=== PATIENT | male | born 1945 | race Native Hawaiian/Other Pacific Islander ===

== ENCOUNTER → 2020-10-08 09:31 | Outpatient (CLI) | payer OTHER, SELFPAY ==
[2020-10-08 13:30] LABS: COVID19 -Nasal RAPID Negative (Negative)
== END ==
PROVIDERS: PCP Family Medicine; Visit Provider Physical Medicine & Rehabilitation
DX: Z20.822 Contact with and (suspected) exposure to COVID-19 (principal)
CPT/HCPCS: 87635; C9803

== ENCOUNTER 2020-10-10 14:23 | Outpatient (CLI) | payer OTHER, SELFPAY ==
[2020-10-10] VITALS (8 sets, daily range): BP systolic 113–152; BP diastolic 63–84; PULSE 75–80; RESP 15–20; TEMP 36.8; O2SAT 94–97
--- NOTE | 2020-10-10 14:25 | DI.RAD.S_ITS ---
PROCEDURE: PAIN L/S FACET INJ/BLK 1ST EVELYN COMPARISON: None. INDICATIONS: SPONDYLOSIS FINDINGS: Intraoperative fluoroscopic images of lower lumbar spine shows injection needle placement at bilateral facet joints of L3-4 and L4-5 levels. IMPRESSION: Fluoro guidance was provided intraoperatively for bilateral lower lumbar spine facet injection. Dictated by: Wilbert Andersen M.D. on 10/10/2020 at 15:55 Approved by: Wilbert Andersen M.D. on 10/10/2020 at 15:56
[2020-10-10] MEDS: fentaNYL 100 MCG/2 ML INJ 50 MCG IV (15:10)
[2020-10-10] MEDS: MIDAZOLAM 5 MG/5 ML VIAL IV (15:10)
[2020-10-10] MEDS: BETAMETHASONE 30 MG/5 ML MDV 12 MG INJ (15:14)
[2020-10-10] MEDS: IOPAMIDOL 15 ML VIAL 3 ML INJ (15:14)
[2020-10-10] MEDS: LIDOCAINE 1% 20 ML 10 ML INJ (15:15)
[2020-10-10] MEDS: BUPIVACAINE 0.5% (PF) VIAL 2 ML INJ (15:15)
--- NOTE | 2020-10-10 15:23 | P.PCN_ITS ---
Date/Time/Diagnoses Date of procedure: 10/10/20 Time of procedure: 15:23 Pre-procedure diagnosis: 1. FACET ARTHROPATHY 2. AXIAL LBP 3. MULTILEVEL DDD Post-procedure diagnosis: same Procedure Notes Procedure: 1. FLUOROSCOPICALLY GUIDED CONTRAST CONTROLLED FACET JOINT INJECTIONS BILATERAL L4/5, L5/S1 Indications: Taye is referred by Dr. La for treatment of Axial LBP Physician: Jose Cummins Total Fluoroscopy time (seconds): 8 Total sedation minutes: 10 Complications: none Procedure in detail & Post-procedure care: FINDINGS Multilevel Facet Arthropathy with Clinically significant axial LBP DESCRIPTION OF PROCEDURE Fluoroscopically guided, contrast-controlled bilateral L4/5, L5/S1 facet joint injections. Following review of allergy and review of potential side effects and complications, including, but not necessarily limited to, infection, allergic reaction, local tissue breakdown, stroke, temporary or permanent nerve injury, paralysis, and possible , the patient indicated that the patient understood and agreed to proceed. An informed consent document was signed by the patient, witnessed by a nurse, and placed in the patient's chart. Additionally, other treatment options including medications, modalities, and physical therapy were reviewed with the patient. After review of previous anaesthesic history and IV conscious sedation the patient was deemed safe to proceed with today?s procedure with IV conscious sedation as ASA class II designation. Safety time-out was performed to confirm patient ID, procedure to be performed and site of procedure. IV sedation was accomplished with a combination of 2mg of Versed and 50mcg of Fentanyl was administered by the RN after DO order, titrated to patient comfort during the course of the procedure while the patient remained responsive to all verbal commands In the prone position, following sterile prep and drape of the lumbar region, the posterior aspect of the L4/5, L5/S1 facet joints were identified fluoroscopically. The skin was anesthetized via a 25-gauge 1.5inch needle with 1% lidocaine solution into the corresponding facet joints. At this point, a 22- gauge 3.5-inch spinal needle was atraumatically introduced and advanced under fluoroscopic guidance into the corresponding facet joints. Following negative aspiration, injections of approximately 0.2cc of Isovue 200 confirmed interar ticular placement without vascular uptake. The identical procedure was then performed at the L4/5, L5/S1 facet joints on the left. Radiological data, including multiple fluoroscopic views of the lumbosacral spine, reveal a spinal needle at the L4/5, L5/S1 facet joints bilaterally. Subsequent views show flow of contrast material both superiorly and inferiorly within the joint space without vascular or intrathecal uptake. At this point, a total of 0.5cc including a mixture of 0.25cc Marcaine and 0.25cc betamethasone was injected without complication into each of the corresponding facet joints. The patient tolerated the procedure well without signs or symptoms of complications prior to transfer to the recovery area continued monitoring without incident. The patient was then transferred to the recovery area where they were observed for an appropriate period of time after the injection. The patient reported a VAS score of 7 prior to the procedure and a post- procedure VAS of 0. POST OP INSTRUCTIONS The patient was provided a Pain Log to continue to record their response to the target-specific procedure prior to follow-up visit with their referring physician. Additionally, specific post-injection care instructions and a contact number to our office were provided if concerns arise regarding possible complications associated with the procedure are suspected.
--- NOTE | 2020-10-10 17:03 | PC.NURSE ---
Patient has been clear from sedation monitoring since 1539. Currently still awaiting his ride home. Meghana has been contacted multiple times.
== END 2020-10-10 17:11 | disposition home or self-care (01) ==
PROVIDERS: PCP Family Medicine; Referring Provider Physical Medicine & Rehabilitation; Visit Provider Physical Medicine & Rehabilitation
DX: M47.816 Spondylosis without myelopathy or radiculopathy, lumbar region (principal); M47.817 Spondylosis without myelopathy or radiculopathy, lumbosacral region; M51.36 Other intervertebral disc degeneration, lumbar region; M51.37 Other intervertebral disc degeneration, lumbosacral region; M54.5 Low back pain
CPT/HCPCS: 64493; 64494; 99152; J0702; J2250; J3010

== ENCOUNTER → 2021-01-13 08:12 | Outpatient (CLI) | payer OTHER, SELFPAY ==
[2021-01-13 11:51] LABS: COVID19 -Nasal RAPID Negative (Negative)
== END ==
PROVIDERS: PCP Family Medicine; Visit Provider Physical Medicine & Rehabilitation
DX: Z20.822 Contact with and (suspected) exposure to COVID-19 (principal)
CPT/HCPCS: 87635; C9803

== ENCOUNTER 2021-01-14 13:33 | Outpatient (CLI) | payer OTHER, SELFPAY ==
[2021-01-14] VITALS (8 sets, daily range): BP systolic 110–136; BP diastolic 56–70; PULSE 66–86; RESP 16–23; TEMP 37; O2SAT 88–97
--- NOTE | 2021-01-14 13:34 | DI.RAD.S_ITS ---
PROCEDURE: PAIN L INTERLAMINAR/CAUDAL INJ INDICATIONS: Right L3-4 translaminar MARTHA COMPARISON: [facility], , PAIN L/S FACET INJ/BLK 1ST VEELYN, 10/10/2020, 15:13. FINDINGS: Fluoroscopic spot filming was performed to verify placement of a spinal needle at the L3-L4 level, as labeled on the films. Appropriate location of the needle tip was confirmed by injection of iodinated contrast. IMPRESSION: Intraprocedural examination within normal limits. Dictated by: Ventura Laura M.D. on 01/14/2021 at 14:30 Approved by: Ventura Laura M.D. on 01/14/2021 at 14:35
[2021-01-14] MEDS: MIDAZOLAM 5 MG/5 ML VIAL IV (14:55)
[2021-01-14] MEDS: IOPAMIDOL 15 ML VIAL 3 ML INJ (15:01)
[2021-01-14] MEDS: DEXAMETHASONE 10 MG/ML VIAL 20 MG INJ (15:02)
[2021-01-14] MEDS: BETAMETHASONE 30 MG/5 ML MDV 12 MG INJ (15:02)
[2021-01-14] MEDS: LIDOCAINE 1% 20 ML 10 ML INJ (15:03)
--- NOTE | 2021-01-14 15:07 | P.PCN_ITS ---
Date/Time/Diagnoses Date of procedure: 01/14/21 Time of procedure: 15:07 Pre-procedure diagnosis: 1. HNP WITH RADICULAR FEATURES, 2. MULTILEVEL CENTRAL STENOSIS, Post-procedure diagnosis: same Procedure Notes Procedure: 1. FLUOROSCOPICALLY GUIDED CONTRAST CONTROLLED INTERLAMINAR EPIDURAL STEROID INJECTION - L3/4 Indications: Taye is referred by Dr. La for treatment of Bilateral Foraminal Stenosis L>R LE symptoms. Physician: Jose Cummins Total Fluoroscopy time (seconds): 7 Total sedation minutes: 10 Complications: none Procedure in detail & Post-procedure care: FINDINGS Multilevel Central Spinal Stenosis with Nerve Root Compression DESCRIPTION OF PROCEDURE Fluoroscopically guided, contrast-controlled L3/4 translaminar epidural steroid injection. Following review of allergy and review of potential side effects and complications, including, but not necessarily limited to, infection, allergic reaction, local tissue breakdown, temporary as well as permanent nerve injury, paralysis, stroke and possible , the patient indicated that the patient understood and agreed to proceed. An informed consent document was signed by the patient, witnessed by a nurse, and placed in the patient's chart. Additionally, other treatment options including modalities, medications, and physical therapy were reviewed with the patient. After review of previous anaesthesic history and IV conscious sedation the patient was deemed safe to proceed with today?s procedure with IV conscious sedation as ASA class II designation. Safety time-out was performed to confirm patient ID, procedure to be performed and site of procedure. IV sedation was accomplished with a combination of 2mg of Versed was administered by the RN after DO order, titrated to patient comfort during the course of the procedure while the patient remained responsive to all verbal commands. In the prone position, following sterile prep and drape of the lumbar region, the L3/4 translaminar space was identified fluoroscopically. The skin was anesthetized via a 25-gauge, 1.5-inch needle with 1% lidocaine solution. At this point, a 22-gauge short bevel spinal needle was atraumatically introduced and advanced under fluoroscopic guidance into the region of the L3/4 translaminar space. Depth was confirmed on lateral view. Radiological data, including multiple fluoroscopic views of the lumbar spine, reveal a spinal needle at the L3/4 translaminar space. Lateral views then show placement of the needle in the epidural space. Subsequent views show contrast material flowing superiorly and inferiorly in the epidural space. No vascular or intrathecal uptake is observed. At this point, using loss of resistance technique with saline and air, the epidural space was entered. This was confirmed following negative aspiration with injection of approximately 1.5 cc of Isovue 200, showing excellent epidural flow without vascular or intrathecal uptake. At this point, 1cc of 1% lidocaine solution combined with 4cc or 20mg of dexamethasone and 12mg of betamethasone was injected without incident. The patient tolerated the procedure well without signs or symptoms of complications prior to transfer to the recovery area continued monitoring without incident. The patient was then transferred to the recovery area where they were observed for an appropriate period of time after the injection. The patient reported a VAS score of 6 prior to the procedure and a post- procedure VAS of 0. POST OP INSTRUCTIONS The patient was provided a Pain Log to continue to record their response to the target-specific procedure prior to follow-up visit with their referring physician. Additionally, specific post-injection care instructions and a contact number to our office were provided if concerns arise regarding possible complications associated with the procedure are suspected.
--- NOTE | 2021-01-14 16:23 | PC.NURSE ---
pt was pretty medicated after procedure and needed some extra time to wake up before discharge. His vs remained stable. His ride was not going to be able to pick him up until 1630. So he is waiting for her at the emergency entrance to the hospital. We called her ahead of time related to his length of stay the previous visit. Pt steady on feet and able to ambulate without difficulty.
== END 2021-01-14 16:00 | disposition home or self-care (01) ==
LOC: RAD 13:33
PROVIDERS: PCP Family Medicine; Referring Provider Physical Medicine & Rehabilitation; Visit Provider Physical Medicine & Rehabilitation
DX: M51.16 Intervertebral disc disorders with radiculopathy, lumbar region (principal); M48.061 Spinal stenosis, lumbar region without neurogenic claudication
CPT/HCPCS: 62323; 99152